=== PATIENT | female | born 1945 | race Hispanic/Latino ===

== ENCOUNTER → 2021-11-13 | Outpatient (CLI) | payer OTHER ==
[2021-11-13 12:51] LABS: POTASSIUM 4.8 mmol/L (3.5-5.1)
[2021-11-13 13:04] LABS: BILIRUBIN,TOTAL 0.5 mg/dL (0.2-1.0); CREATININE 0.9 mg/dL (0.5-1.5); TOTAL PROTEIN, SERUM 8.1 g/dL (6.0-8.3)
== END | disposition home or self-care (01) ==
LOC: LAB 11:41
PROVIDERS: ATTEND Student in an Organized Health Care Education/Training Program
DX: I10 Essential (primary) hypertension (principal)
CPT/HCPCS: 36415; 80053

== ENCOUNTER → 2021-11-20 | Outpatient (CLI) | payer OTHER | END | disposition home or self-care (01) | LOC: SHCH 08:42 | PROVIDERS: ATTEND Student in an Organized Health Care Education/Training Program | DX: R07.9 Chest pain, unspecified (principal) | CPT/HCPCS: 93306 ==

== ENCOUNTER → 2023-07-28 | Outpatient (CLI) | payer OTHER | END | disposition home or self-care (01) | LOC: SHCH 09:39 | PROVIDERS: ATTEND Student in an Organized Health Care Education/Training Program | DX: I42.2 Other hypertrophic cardiomyopathy (principal); I10 Essential (primary) hypertension; E78.5 Hyperlipidemia, unspecified; E11.9 Type 2 diabetes mellitus without complications | CPT/HCPCS: 93306 ==

== ENCOUNTER 2023-10-13 05:53 | Day surgery (SDC) | payer OTHER ==
[2023-10-10 09:24] LABS: BASOPHILS # (AUTO) 0.06 K/uL (0.00-0.20); BASOPHILS % (AUTO) 0.9 % (0.0-5.0); EOSINOPHILS # (AUTO) 0.19 K/uL (0.00-0.70); EOSINOPHILS % (AUTO) 2.7 % (0.0-8.0); HEMATOCRIT 37.1 % (36-48); IMMATURE GRANULOCYTE ABSOLUTE 0.02 K/uL (0-1); LYMPHOCYTES # (AUTO) 2.6 K/uL (1.0-4.8); LYMPHOCYTES % (AUTO) 36.7 % (21.0-51.0); MEAN CORPUSCULAR HEMOGLOBIN 30.6 pg (27.0-33.0); MEAN CORPUSCULAR HGB CONC 33.2 g/dL (32.0-36.0); MEAN CORPUSCULAR VOLUME 92.3 fL (79-99); MONOCYTES # (AUTO) 0.6 K/uL (0.1-1.0); MONOCYTES % (AUTO) 8.3 % (3.0-13.0); NEUTROPHILS # (AUTO) 3.6 K/uL (1.8-7.7); NEUTROPHILS % (AUTO) 51.1 % (40.0-77.0); PLATELET COUNT (AUTO) 274 K/uL (130-400); RED BLOOD CELL COUNT(AUTO) 4.02 MIL/uL (4.00-5.50); RED CELL DISTRIBUTION WIDTH 12.6 % (11.0-15.5)
[2023-10-10 09:34] LABS: INR 0.95 (0.85-1.15); PROTHROMBIN TIME 11.3 SEC (9.6-11.6)
[2023-10-10 09:36] LABS: PARTIAL THROMBOPLASTIN TIME 25.2 SEC (26.3-35.5)
[2023-10-10 09:40] LABS: CREATININE 0.7 mg/dL (0.5-1.0); POTASSIUM 5.4 mmol/L (3.5-5.1)
[2023-10-10 09:46] VITALS: BP 174/89; PULSE 74; RESP 17
[2023-10-10 09:49] LABS: B-TYPE NATRIURETIC PEPTIDE 125 pg/mL (0-100)
[2023-10-13] VITALS (9 sets, daily range): BP systolic 156–185; BP diastolic 52–89; PULSE 57–84; RESP 14–18
[~2023-10-13] VITALS: Ht 162.6 cm; Wt 65.8 kg
[~2023-10-13 05:53] MED LIST: ATOR20TA65 PO; FERS325 PO; GABA-529 PO; HUMLIS7525 SQ; LISI40TA9 PO; METF-446 PO; METO50TA18 PO
[2023-10-13] MEDS: 0.9%NACL 1000ML 1,000 ML IV ONE (06:58)
[2023-10-13] MEDS ORDERED: HEPARIN 10,000 UNIT/10ML (1,000 UNIT/ML) VIAL ONE (07:27)
[2023-10-13] MEDS ORDERED: NITROGLYCERIN 50MG VIAL ONE (07:27)
[2023-10-13] MEDS ORDERED: LIDOCAINE HCL 400MG/20ML VIAL ONE (07:27)
[2023-10-13] MEDS ORDERED: VERAPAMIL HCL 2.5 MG/ML VIAL ONE (07:27)
[2023-10-13] MEDS ORDERED: IOHEXOL-350 75 ML VIAL IV ONE ×2 (07:28→07:30)
[2023-10-13] MEDS ORDERED: FENTANYL CITRATE PF 50 MCG/1 ML 2ML VIAL ONE (07:28)
[2023-10-13] MEDS ORDERED: MIDAZOLAM HCL 1 MG/ML 2ML VIAL ONE ×2 (07:28→07:44)
[2023-10-13] MEDS ORDERED: GLUCAGON 1MG KIT 1 MG ML IM PRN (08:30)
[2023-10-13] MEDS ORDERED: DEXTROSE 50%-WATER 50 ML DISP.SYRIN IV PRN (08:30)
== END 2023-10-13 11:20 | disposition home or self-care (01) ==
LOC: DAH 05:53
PROVIDERS: ATTEND Student in an Organized Health Care Education/Training Program
DX: I25.118 Atherosclerotic heart disease of native coronary artery with other forms of angina pectoris (principal); I10 Essential (primary) hypertension; E78.5 Hyperlipidemia, unspecified; E11.8 Type 2 diabetes mellitus with unspecified complications; R00.2 Palpitations; R07.9 Chest pain, unspecified; R06.02 Shortness of breath; M54.30 Sciatica, unspecified side; I87.2 Venous insufficiency (chronic) (peripheral); Z83.79 Family history of other diseases of the digestive system; Z83.3 Family history of diabetes mellitus; Z82.49 Family history of ischemic heart disease and other diseases of the circulatory system; Z80.9 Family history of malignant neoplasm, unspecified; Z79.4 Long term (current) use of insulin; Z87.891 Personal history of nicotine dependence; Z79.84 Long term (current) use of oral hypoglycemic drugs; Z79.899 Other long term (current) drug therapy; Z98.890 Other specified postprocedural states
CPT/HCPCS: 80048; 83880; 85025; 85610; 85730; 36415 ×2; 71045; 93005; 93458; 84132; 82948 ×2; C1769; C1894; A4649; J3010; J3490 ×3; J7030; J1644 ×2; J2250 ×2; Q9967; A4215; A4335; A4222; A4221; A4663; A4216; A4606; A4520; A4223 ×3; A4554; 99156; 99157

== ENCOUNTER → 2024-04-04 | Outpatient (CLI) | payer OTHER ==
[~2024-04-04] MED LIST changes: -METO50TA18 PO
== END | disposition home or self-care (01) ==
LOC: SHCH 10:53
PROVIDERS: ATTEND Student in an Organized Health Care Education/Training Program
DX: I25.10 Atherosclerotic heart disease of native coronary artery without angina pectoris (principal); I42.2 Other hypertrophic cardiomyopathy
CPT/HCPCS: 93306

== ENCOUNTER → 2024-05-17 | Outpatient (CLI) | payer OTHER ==
[~2024-05-17] MED LIST changes: +IOHEXOL-350 50ML VIAL IV ONE
--- NOTE | 2024-05-17 10:15 | HMCIMG ---
CT HEAD/BRAIN W/WO CONTRAST HISTORY: Disorientation COMPARISON: None TECHNIQUE: Multiple sequential axial images of the head were obtained from the base of the skull through vertex. Patient was given 50 cc of Omnipaque through intravenous route. FINDINGS: The ventricles and extraventricular CSF spaces are dilated consistent with cerebral atrophy. Nonspecific white matter changes seen. No abnormal enhancement is seen. There is no midline shift, mass effect or herniation. No acute intracranial bleed is seen. Visualized portion of the paranasal sinuses are grossly within normal limits. IMPRESSION: 1. No acute intracranial bleed is seen. 2. Atrophy with white matter changes. No abnormal enhancement is seen. CT was performed with one or more following dose reduction techniques: automated exposure control, adjustment of the mA and kv according to patient's size, or use of a iterative reconstruction technique.
== END | disposition home or self-care (01) ==
LOC: RAH 08:49
PROVIDERS: ATTEND Student in an Organized Health Care Education/Training Program
DX: G31.89 Other specified degenerative diseases of nervous system (principal); R90.82 White matter disease, unspecified; R41.0 Disorientation, unspecified; R26.81 Unsteadiness on feet
CPT/HCPCS: 70470; Q9967